=== PATIENT | male | born 1955 ===

== ENCOUNTER 2018-04-20 18:46 | Emergency (ER) | payer OTHER ==
--- NOTE | 2018-04-20 19:17 | UC ---
General HPI - HPI Summary HPI Summary: Patient states these been fighting a "URI and chest congestion with cough for about 3 weeks. He's been treating with DayQuil and NyQuil plus decongestants which offer only temporary relief. He denies any associated fever or chills, chest pain, shortness of breath and wheezing but does report a sinus headache which she describes as pressure over his sinuses he is gesturing to his maxillary sinus. I did question patient about his blood pressure at time of triage. He states that he has been sick plus taking deep decongestants and reports an element of white coat hypertension. He states that sometimes his blood pressure will be elevated during the initial visit but then is much improved on recheck. - History of Current Complaint Chief Complaint: UCRespiratory Stated Complaint: UPPER RESPIRATORY Time Seen by Provider: 04/20/18 18:58 Hx Obtained From: Patient, Family/[employer] Onset/Duration: Gradual Onset Timing: Constant Pain Intensity: 0 Associated Signs & Symptoms: Positive: Cough. Negative: Fever - Allergy/Home Medications Allergies/Adverse Reactions: Allergies Allergy/AdvReac Type Severity Reaction Status Date / Time No Known Allergies Allergy Verified 04/20/18 18:58 Home Medications: Home Medications Ibuprofen TAB* [Motrin TAB* 400 MG] 400 mg PO Q6H PRN 04/20/18 [History Confirmed 04/20/18] PMH/Surg Hx/FS Hx/Imm Hx - Additional Past Medical History Additional PMH: colon CA, white coat hypertension Cardiovascular History: Pacemaker/ICD, Atrial Fibrillation - Surgical History Surgical History: Yes Surgery Procedure, Year, and Place: pacemaker 1995, 2016. partial colectomy 2018. appendix 2018 - Family History Known Family History: Positive: Other - CA - Social History Occupation: Disabled Lives: With Family Alcohol Use: None Substance Use Type: None Smoking Status (MU): Never Smoked Tobacco - Immunization History Vaccination Up to Date: Yes Review of Systems Constitutional: Negative Skin: Negative Eyes: Negative ENT: Nasal Discharge, Sinus Congestion, Sinus Pain/Tenderness Respiratory: Cough Cardiovascular: Negative Gastrointestinal: Negative Genitourinary: Negative Motor: Negative Neurovascular: Negative Musculoskeletal: Negative Neurological: Negative Psychological: Negative Is Patient Immunocompromised?: No All Other Systems Reviewed And Are Negative: Yes Physical Exam Triage Information Reviewed: Yes Appearance: Well-Appearing Vital Signs: Initial Vital Signs Temp 98.3 F 04/20/18 18:55 Pulse 77 04/20/18 18:55 Resp 14 04/20/18 18:55 BP 182/98 04/20/18 18:55 Pulse Ox 97 04/20/18 18:55 Vital Signs Reviewed: Yes Eyes: Positive: Conjunctiva Clear ENT: Positive: Pharynx normal, Nasal congestion, TMs normal, Sinus tenderness - maxillary. Negative: Nasal drainage Neck: Positive: Supple, Nontender, No Lymphadenopathy Respiratory: Positive: Lungs clear, Normal breath sounds, No respiratory distress Cardiovascular: Positive: RRR, No Murmur Abdomen Description: Positive: Nontender, No Organomegaly, Soft Bowel Sounds: Positive: Present Musculoskeletal: Positive: ROM Intact Neurological: Positive: Alert Psychological: Positive: Age Appropriate Behavior Skin Exam: Normal Course/Dx - Course Course Of Treatment: Ongoing elevation of blood pressure discussed with patient. He repeats that he has a history of this were it is significantly elevated at one time and then on follow-up it comes back normal. He feels that his BP is a combination of decongestant use, current illness and whitecoat hypertension. He does agree to follow up with a primary care and is requesting a referral to Dr. Naqvi whom he will call in the a.m. He has nothing to suggest a hypertensive urgency or emergency. - Differential Dx - Multi-Symptom Provider Diagnoses: sinusitis. bronchitis. Elevated BP Discharge - Sign-Out/Discharge Documenting (check all that apply): Patient Departure All imaging exams completed and their final reports reviewed: No Studies - Discharge Plan Condition: Stable Disposition: HOME Prescriptions: Amoxicillin/Clavulanate TAB* [Augmentin TAB 875*] 875 mg PO BID 10 Days #20 tab Patient Education Materials: Sinusitis (ED), Acute Bronchitis (ED), Hypertension (ED) Referrals: Jeffy Naqvi MD [Medical Doctor] - As Soon As Possible Additional Instructions: DIAGNOSIS: SINUSITIS, BRONCHITIS, ELEVATED BP 172/102 STOP ALL DECONGESTANTS - Billing Disposition and Condition Condition: STABLE Disposition: Home
[2018-04-20 19:39] VITALS: BP 172/102
== END 2018-04-20 19:48 | disposition home or self-care (01) ==
LOC: UCCORT 18:46
DX: J32.9 Chronic sinusitis, unspecified (principal); J40 Bronchitis, not specified as acute or chronic; R03.0 Elevated blood-pressure reading, without diagnosis of hypertension
CPT/HCPCS: 99202; G0463